=== PATIENT | male | born 1965 | race Caucasian/White ===

== ENCOUNTER → 2016-08-19 | Outpatient (CLI) | payer MEDICAID, OTHER ==
[~2016-08-19] MED LIST: ETOMIDATE 20 MG/10 ML VIAL IV PUSH ONE; LIDOCAINE HCL 2% 100 MG/5 ML SYRINGE IV PUSH ONE; LORazepam 2 MG/ML VIAL IV PUSH ONE; SUCCINYLCHOLINE CHLORIDE 200 MG/10 ML VIAL IV PUSH ONE
== END ==
LOC: HEDF 00:31
DX: R41.82 Altered mental status, unspecified (principal); S00.81XA Abrasion of other part of head, initial encounter; R09.89 Other specified symptoms and signs involving the circulatory and respiratory systems; R00.0 Tachycardia, unspecified; V29.9XXA Motorcycle rider (driver) (passenger) injured in unspecified traffic accident, initial encounter
CPT/HCPCS: A0431; A0436; J0330; J2060